=== PATIENT | female | born 1995 | race Caucasian/White ===

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

== ENCOUNTER 2017-05-23 18:30 | Emergency (ER) | END 2017-05-24 01:09 | disposition home or self-care (01) ==

== ENCOUNTER 2017-07-11 12:03 | Emergency (ER) | END 2017-07-11 15:02 | disposition home or self-care (01) ==

== ENCOUNTER 2017-12-18 12:30 | Inpatient (IN) | END 2017-12-21 16:05 | disposition home or self-care (01) | DRG 781 ==

== ENCOUNTER 2018-01-05 03:08 | Inpatient (IN) | END 2018-01-07 14:15 | disposition home or self-care (01) | DRG 806 ==

== ENCOUNTER 2018-02-22 09:11 | Emergency (ER) | payer OTHER ==
[~2018-02-22] VITALS: Wt 50.5 kg
[~2018-02-22 09:11] MED LIST: PREN1TAB91 PO
[2018-02-22] MEDS ORDERED: ACETAMINOPHEN 500 MG TAB PO STA (09:26)
[2018-02-22] MEDS ORDERED: ONDANSETRON 4 MG INJ IV STA (09:26)
[2018-02-22] MEDS ORDERED: SOD CHLORIDE 0.9% 1,000 ML IV ONE (09:30)
[2018-02-22] MEDS ORDERED: CEFTRIAXONE 1 GM/50 ML (PMX) 50 ML IVPB ONE (10:30)
[2018-02-22] MEDS ORDERED: SOD CHLORIDE 0.9% 1,000 ML IV STA (10:35)
--- NOTE | 2018-02-22 11:21 | ERD ---
ER Documentation Chief Complaint Chief Complaint FEVER WITH BILATERAL EAR PAIN SINCE FRIDAY HPI 22-year-old female history of vaginal delivery 1 month prior to being seen presents with fever and bilateral ear pain since Friday. Patient denies cough, shortness of breath, chest pain. Sore throat. She admits to having right lower abdominal pain since today rates it 5 out of 10. Patient states that she has decreased appetite, last meal was yesterday. Denies vomiting, diarrhea, constipation. Denies any history of abdominal surgeries. Denies dysuria, hematuria, flank tenderness ROS All systems reviewed and are negative except as per history of present illness. Medications Home Meds Active Scripts Acetaminophen* (Tylenol*) 325 Mg Tablet, 2 TAB PO Q6 PRN for PAIN AND OR ELEVATED TEMP, #30 TAB Prov:NIKOLAS RICHARD PA-C 02/22/18 Cefdinir (Cefdinir) 300 Mg Capsule, 300 MG PO BID, #20 CAP Prov:NIKOLAS RICHARD PA-C 02/22/18 Reported Medications Pnv95/Ferrous Fumarate/FA ( Formula Tablet) 1 Each Tablet, 1 EACH PO, TAB 12/18/17 Allergies Allergies: Coded Allergies: No Known Allergy (Unverified , 07/18/16) PMhx/Soc Medical and Surgical Hx: pt denies Surgical Hx History of Surgery: No Anesthesia Reaction: No Hx Neurological Disorder: No Hx Respiratory Disorders: No Hx Cardiac Disorders: No Hx Psychiatric Problems: No Hx Miscellaneous Medical Probl: Yes (fractured pelvis) Hx Alcohol Use: No Hx Substance Use: No Hx Tobacco Use: No Smoking Status: Never smoker Physical Exam Vitals Vital Signs Date Temp Pulse Resp B/P (MAP) Pulse Ox O2 O2 Flow FiO2 Time Delivery Rate 02/22/18 98.8 80 18 106/56 99 Room Air 12:46 (73) 02/22/18 101.8 102 18 97/55 (69) 96 Room Air 10:48 02/22/18 104.2 126 18 99/70 (80) 99 09:18 Physical Exam GENERAL: well-developed/well-nourished, in no apparent distress, non-toxic appearing HENT: NC/AT, moist mucous membranes EYES: Conjunctiva normal NECK: Supple, no lymphadenopathy PULM: CTA bilaterally, no rales, rhonchi, or wheezing heard CV: Normal S1S2, RRR, good capillary refill GI: Soft, non-distended, tender to palpation right pelvic region right lower quadrant, positive McBurney's point Normal bowel sounds, no masses or organomegaly felt on exam No gross peritonitis, no bruits Negative Rovsing, negative White Negative CVAT BACK: No masses EXT: No clubbing, cyanosis, or edema NEURO: Alert and Orientated SKIN: Intact, normal turgor PSYCH: Normal mood and mentation Result Diagram: 02/22/1849 02/22/18948 Results 24 hrs Laboratory Tests Test 02/22/18 09:40 02/22/18 09:49 02/22/18 09:52 Urine Color JAYLA Urine Clarity CLOUDY Urine pH 5.0 Urine Specific [place] 1.023 Urine Ketones 2+ mg/dL Urine Nitrite NEGATIVE mg/dL Urine Bilirubin NEGATIVE mg/dL Urine Urobilinogen NEGATIVE mg/dL Urine Leukocyte Esterase 3+ Ujliet/ul Urine Microscopic RBC 33 /HPF Urine Microscopic WBC > 182 /HPF Urine Squamous Epithelial Cells MANY /HPF Urine Bacteria FEW /HPF Urine Mucus MODERATE /HPF Urine Hemoglobin 2+ mg/dL Urine Glucose NEGATIVE mg/dL Urine Total Protein 2+ mg/dl White Blood Count 14.3 10^3/ul Red Blood Count 4.70 10^6/ul Hemoglobin 15.5 g/dl Hematocrit 43.6 % Mean Corpuscular Volume 92.8 fl Mean Corpuscular Hemoglobin 33.0 pg Mean Corpuscular 35.6 g/dl Hemoglobin Concent Red Cell Distribution Width 10.9 % Platelet Count 173 10^3/UL Mean Platelet Volume 11.5 fl Immature Granulocytes % 0.600 % Neutrophils % 92.0 % Lymphocytes % 4.4 % Monocytes % 2.9 % Eosinophils % 0.0 % Basophils % 0.1 % Nucleated Red Blood Cells % 0.0 /100WBC Immature Granulocytes # 0.080 10^3/ul Neutrophils # 13.2 10^3/ul Lymphocytes # 0.6 10^3/ul Monocytes # 0.4 10^3/ul Eosinophils # 0.0 10^3/ul Basophils # 0.0 10^3/ul Nucleated Red Blood Cells # 0.0 10^3/ul Sodium Level 139 mmol/L Potassium Level 3.8 mmol/L Chloride Level 100 mmol/L Carbon Dioxide Level 22 mmol/L Anion Gap 17 Blood Urea Nitrogen 7 mg/dl Creatinine 0.89 mg/dl Est Glomerular Filtrat > 60 mL/min Rate mL/min Glucose Level 126 mg/dl Calcium Level 9.5 mg/dl Total Bilirubin 0.5 mg/dl Direct Bilirubin 0.00 mg/dl Indirect Bilirubin 0.5 mg/dl Aspartate Amino 33 IU/L Transf (AST/SGOT) Alanine 18 IU/L Aminotransferase (ALT/SGPT) Alkaline Phosphatase 99 IU/L Total Protein 8.5 g/dl Albumin 4.6 g/dl Globulin 3.90 g/dl Albumin/Globulin Ratio 1.17 Monoscreen Negative POC Beta HCG, Qualitative NEGATIVE Current Medications Medications Dose Sig/Narda Start Time Status Last (Trade) Ordered Route PRN Stop Time Admin Dose Reason Admin 1,000 mg ONCE STAT 02/22/18 DC 02/22/18 Acetaminophen PO 09: 09:55 (Tylenol 02/22/18 Tab) 09:28 Ondansetron 4 mg ONCE STAT 02/22/18 DC 02/22/18 HCl (Zofran IV 09: 09:55 Inj) 02/22/18 09:30 Sodium 1,000 ml @ Q1H ONCE 02/22/18 DC 02/22/18 Chloride 1,000 mls/hr IV 09:30 09:56 02/22/18 10:29 Ceftriaxone 50 ml @ ONCE ONCE 02/22/18 DC 02/22/18 Sodium 100 mls/hr IVPB 10:30 10:31 02/22/18 10:59 Sodium 1,000 ml @ Q30M STAT 02/22/18 DC 02/22/18 Chloride 2,000 mls/hr IV 10:35 10:48 02/22/18 11:04 Procedures/MDM 22-year-old female presents with fever, bilateral ear pain and abdominal pain since Friday. Patient presented febrile with tachycardia however she does not appear toxic/septic. Patient likely has a viral syndrome with a urinary tract infection. There was no signs of otitis media, mastoiditis, pneumonia, meningitis. IV access established, patient was given 2 L of normal saline fluids. Lab work was obtained, she had mild leukocytosis of 14.3. CMP was unremarkable. Urinalysis showed positive signs of infection. Urine preg negative. Patient was treated empirically with Rocephin in the ED and she will be given a prescription for Cefdinir as outpatient. Chest x-ray did not show infiltrates with direct pleural effusion. Patient was tender in her right lower quadrant with positive McBurney's, a CT abdomen and pelvis without contrast was done and showed no significant abnormalities, although the radiologist stated the appendix was not clearly visualized I doubt appendicitis at this time. As I reassessed the patient, she was doing a lot better and had improvement in her symptoms. I have discussed with her that if she gets any worse or not improving as expected to return to the emergency department. I have discussed diagnostic testing with her. Patient's vitals and pain has stabilized in the ED and she stable to be discharged home with return precautions. She understands and agrees with this plan. CT ABD AND PELVIS WITHOUT CONTRAST FINDINGS: There is minimal discoid atelectasis in the right lower lobe. The lung bases are otherwise unremarkable. The liver, spleen, gallbladder, pancreas and adrenal glands are unremarkable for noncontrast study. The kidneys are bilaterally symmetrical without evidence of hydronephrosis. There is no evidence of obstructive uropathy. No significant retroperitoneal adenopathy is identified. The abdominal aorta is intact. The stomach is grossly unremarkable. There is no evidence of small bowel obstruction. The appendix is not clearly identified however there are no secondary signs of acute appendicitis. There is moderate stool seen throughout the colon. There is no evidence of diverticulitis.. No free fluid or free intraperitoneal air is identified. Evaluation of the osseous structures reveals no acute change. IMPRESSION: 1. No significant abnormalities are identified. The appendix is not clearly identified however there are no secondary signs of acute appendicitis. 2. There is moderate stool seen throughout the colon. 3. Otherwise, no significant abnormalities are identified. Departure Diagnosis: Primary Impression: Fever Additional Impression: UTI (urinary tract infection) Condition: Stable NIKOLAS RICHARD PA-C Feb 22, 2018 11:21
[2018-02-22] MEDS ORDERED: CEFD300C2 PO (11:28)
[2018-02-22] MEDS ORDERED: ACET325T33 PO (11:30)
[2018-02-22 12:46] VITALS: BP 106/56; PULSE 80; RESP 18
== END 2018-02-22 13:06 | disposition home or self-care (01) ==
LOC: FTE 09:11
DX: N39.0 Urinary tract infection, site not specified (principal); R10.2 Pelvic and perineal pain
CPT/HCPCS: 71045; 74176; 80053; 81001; 81025; 85025; 86308; 87400; J0696; J2405; J7030; Z7610; 96374; 96375

== ENCOUNTER 2018-04-27 09:13 | Emergency (ER) | payer OTHER ==
[~2018-04-27] VITALS: Ht 157.5 cm; Wt 50.2 kg
[~2018-04-27 09:13] MED LIST changes: +ACET325T33 PO; +CEFD300C2 PO
[2018-04-27 09:17] VITALS: BP 114/58; PULSE 68; RESP 20; Ht 157.5 cm; Wt 50.2 kg
[2018-04-27] MEDS ORDERED: KETOROLAC 60 MG INJ IM STA (09:42)
[2018-04-27] MEDS ORDERED: IBUP-1561 PO (11:28)
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
== END 2018-04-27 11:33 | disposition home or self-care (01) ==
LOC: FTE 09:13
DX: M25.551 Pain in right hip (principal); R10.2 Pelvic and perineal pain
CPT/HCPCS: 72170; 81025; 96372; J1885; Z7502

== ENCOUNTER 2018-07-03 18:38 | Emergency (ER) | payer OTHER ==
[~2018-07-03] VITALS: Ht 152.4 cm; Wt 46.1 kg
[~2018-07-03 18:38] MED LIST changes: +IBUP-1561 PO
[2018-07-03 18:42] VITALS: Ht 152.4 cm; Wt 46.1 kg
[2018-07-03] MEDS ORDERED: ONDANSETRON 4 MG INJ IV STA (21:07)
[2018-07-03] MEDS ORDERED: SOD CHLORIDE 0.9% 500 ML IV ONE (21:30)
[2018-07-03] MEDS ORDERED: ACET500C5 PO (22:24)
[2018-07-03] MEDS ORDERED: ONDA4TAB14 PO (22:24)
[2018-07-03 22:35] VITALS: BP 101/57; PULSE 91; RESP 17
--- NOTE | 2018-07-03 22:41 | ERD ---
ER Documentation Chief Complaint Chief Complaint c/o dizziness/body aches since yesterday HPI 22-year-old female patient with no significant past medical history presents the ED complaining of nausea as well as having dizziness 2-10 episodes of nonmucoid nonbloody diarrhea. She reports that she does have left upper quadrant abdomi nal pain. Denies any chest pain, shortness of breath, wheezing, fever, chills. Reports that she ate some of a car yesterday and it may have caused her to have the symptoms however she is unsure. Denies any other sick contacts. Denies any cough, rhinorrhea, dysuria. ROS All systems reviewed and are negative except as per history of present illness. Medications Home Meds Active Scripts Acetaminophen* (Tylophen*) 500 Mg Capsule, 1 CAP PO Q6H PRN for PAIN AND OR ELEVATED TEMP, #20 CAP Prov:SOCORRO TORRES PA-C 07/03/18 Ondansetron (Ondansetron Odt) 4 Mg Tab.rapdis, 4 MG PO Q6H PRN for NAUSEA AND/OR VOMITING, #10 TAB Prov:SOCORRO TORRES PA-C 07/03/18 Ibuprofen* (Motrin*) 400 Mg Tab, 400 MG PO Q6, #30 TAB Prov:SOCORRO TORRES PA-C 04/27/18 Acetaminophen* (Tylenol*) 325 Mg Tablet, 2 TAB PO Q6 PRN for PAIN AND OR ELEVATED TEMP, #30 TAB Prov:NIKOLAS RICHARD PA-C 02/22/18 Cefdinir (Cefdinir) 300 Mg Capsule, 300 MG PO BID, #20 CAP Prov:NIKOLAS RICHARD PA-C 02/22/18 Reported Medications Pnv95/Ferrous Fumarate/FA ( Formula Tablet) 1 Each Tablet, 1 EACH PO, TAB 12/18/17 Allergies Allergies: Coded Allergies: No Known Allergy (Unverified , 07/18/16) PMhx/Soc History of Surgery: No Anesthesia Reaction: No Hx Neurological Disorder: No Hx Respiratory Disorders: No Hx Cardiac Disorders: No Hx Psychiatric Problems: No Hx Miscellaneous Medical Probl: Yes (fractured pelvis) Hx Alcohol Use: No Hx Substance Use: No Hx Tobacco Use: No Smoking Status: Never smoker FmHx Family History: No diabetes, No coronary disease Physical Exam Vitals Vital Signs Date Temp Pulse Resp B/P (MAP) Pulse Ox O2 O2 Flow FiO2 Time Delivery Rate 07/03/18 99.9 119 18 140/74 98 18:42 (96) Physical Exam Const: Glj-[id number]-ycmwvmrwm, well-nourished. In no acute distress. Head: Atraumatic, normocephalic Eyes: Normal Conjunctiva without injection. No purulent discharge. ENT: Normal external ear, nose. Moist oropharynx without tonsillar exudates. Non-erythematous pharynx. Uvula midline. No drooling. No trismus. Neck: No cervical midline tenderness. Full range of motion. No meningismus. No cervical lymphadenopathy. No JVD. Resp: Clear to auscultation bilaterally. No wheezing, rhonchi, rales, or crackles. No accessory muscle use. No retractions. Cardio: Regular rate and rhythm. No murmurs, rubs or gallops. Abd: Soft, left upper quadrant tenderness, non distended. Normal bowel sounds. No palpable masses. No rebound tenderness. No guarding. Negative McBurney's point. Negative psoas sign. Negative obturator sign. Skin: No petechiae or rashes Back: No midline tenderness. No CVA tenderness. Ext: No cyanosis, or edema. Neur: Awake and alert. Normal gait. Normal coordination. Psych: Normal Mood and Affect Result Diagram: 07/03/18211507/03/182115 Results 24 hrs Laboratory Tests Test 07/03/18 21:16 07/03/18 21:22 White Blood Count 6.0 10^3/ul Red Blood Count 5.54 10^6/ul Hemoglobin 17.5 g/dl Hematocrit 50.9 % Mean Corpuscular Volume 91.9 fl Mean Corpuscular Hemoglobin 31.6 pg Mean Corpuscular Hemoglobin Concent 34.4 g/dl Red Cell Distribution Width 11.9 % Platelet Count 235 10^3/UL Mean Platelet Volume 11.4 fl Immature Granulocytes % 0.300 % Neutrophils % 81.2 % Lymphocytes % 11.7 % Monocytes % 6.5 % Eosinophils % 0.0 % Basophils % 0.3 % Nucleated Red Blood Cells % 0.0 /100WBC Immature Granulocytes # 0.020 10^3/ul Neutrophils # 4.8 10^3/ul Lymphocytes # 0.7 10^3/ul Monocytes # 0.4 10^3/ul Eosinophils # 0.0 10^3/ul Basophils # 0.0 10^3/ul Nucleated Red Blood Cells # 0.0 10^3/ul Urine Color YELLOW Urine Clarity SLIGHTLY CLOUDY Urine pH 5.0 Urine Specific [place] 1.032 Urine Ketones 2+ mg/dL Urine Nitrite NEGATIVE mg/dL Urine Bilirubin NEGATIVE mg/dL Urine Urobilinogen NEGATIVE mg/dL Urine Leukocyte Esterase NEGATIVE Juliet/ul Urine Microscopic RBC 2 /HPF Urine Microscopic WBC 5 /HPF Urine Squamous Epithelial Cells FEW /HPF Urine Mucus MANY /HPF Urine Hemoglobin 2+ mg/dL Urine Glucose NEGATIVE mg/dL Urine Total Protein 1+ mg/dl Sodium Level 140 mmol/L Potassium Level 3.9 mmol/L Chloride Level 102 mmol/L Carbon Dioxide Level 25 mmol/L Anion Gap 13 Blood Urea Nitrogen 11 mg/dl Creatinine 0.84 mg/dl Est Glomerular Filtrat Rate mL/min > 60 mL/min Glucose Level 114 mg/dl Calcium Level 9.9 mg/dl Total Bilirubin 0.6 mg/dl Direct Bilirubin 0.00 mg/dl Indirect Bilirubin 0.6 mg/dl Aspartate Amino Transf (AST/SGOT) 27 IU/L Alanine Aminotransferase (ALT/SGPT) 16 IU/L Alkaline Phosphatase 85 IU/L Total Protein 9.3 g/dl Albumin 5.0 g/dl Globulin 4.30 g/dl Albumin/Globulin Ratio 1.16 Lipase 76 U/L POC Beta HCG, Qualitative NEGATIVE Current Medications Medications Dose Sig/Narda Start Time Status Last (Trade) Ordered Route PRN Stop Time Admin Dose Reason Admin Sodium 500 ml @ Q1H ONCE 07/03/18 DC 07/03/18 Chloride 500 mls/hr IV 21:30 07/03/18 21:21 22:29 Ondansetron 4 mg ONCE STAT 07/03/18 DC 07/03/18 HCl (Zofran IV 21:07 07/03/18 21:21 Inj) 21:09 Procedures/MDM 22-year-old female patient with no sniffing past medical history presents to ED complaining of abdominal pain, diarrhea. Patient is afebrile and nontoxic- appearing. Patient is afebrile and nontoxic-appearing. Patient was further worked up with CBC, CMP, lipase, UA, urine . CBC: No leukocytosis. No e/o of systemic infection. No e/o anemia. CMP: No e/o severe acidosis, alkalosis, renal failure, diabetic ketoacidosis, liver disease Lipase within normal limits. Urine: No leukocyte esterase, no nitrites, 2+ hematuria. Urine : Negative Patient's diarrhea is likely due to viral etiology. Patient reports that she no longer had abdominal pain with the 4 mg IV Zofran, 500 mL normal saline treatment here in the ED. however instructed patient that if she still had persistent and worsening abdominal pain, she should return to the ED for any of these worsening symptoms for further evaluation and treatment. Low suspicion for ectopic , ovarian torsion, gastritis, GERD, peptic ulcer disease, cholecystitis, choledocholithiasis, cholangitis, pancreatitis, appendicitis, bowel obstruction, ileus, volvulus, nephrolithiasis, pyelonephritis, hepatitis, perforated viscus, diverticulitis, strangulated/incarcerated hernia, DKA, acute abdomen, mesenteric ischemia or other emergent conditions. Diagnosis: Diarrhea, Abdominal Pain Discharge medications: Tylenol, Zofran, Ibuprofen Follow up with primary care physician in 1-2 days. Instructed patient to return to the ED sooner for any worsening symptoms. Patient's questions were answered. Patient is hemodynamically stable. Patient understood and agreed with discharge plan. Patient discharged stable. Disclaimer: Inadvertent spelling and grammatical errors are likely due to EHR/dictation software use and do not reflect on the overall quality of patient care. Also, please note that the electronic time recorded on this note does not necessarily reflect the actual time of the patient encounter. Departure Diagnosis: Primary Impression: Diarrhea Diarrhea type: unspecified type Qualified Codes: R19.7 - Diarrhea, unspecified Additional Impression: Abdominal pain Abdominal location: unspecified location Qualified Codes: R10.9 - Unspecified abdominal pain Condition: Stable Patient Instructions: Abdominal Pain, Diet, Vomiting Or Diarrhea [6Yr-Adult] Referrals: [facility] YOU HAVE RECEIVED A MEDICAL SCREENING EXAM AND THE RESULTS INDICATE THAT YOU DO NOT HAVE A CONDITION THAT REQUIRES URGENT TREATMENT IN THE EMERGENCY DEPARTMENT. FURTHER EVALUATION AND TREATMENT OF YOUR CONDITION CAN WAIT UNTIL YOU ARE SEEN IN YOUR DOCTORS OFFICE WITHIN THE NEXT 1-2 DAYS. IT IS YOUR RESPONSIBILITY TO MAKE AN APPOINTMENT FOR FOLOW-UP CARE. IF YOU HAVE A PRIMARY DOCTOR --you should call your primary doctor and schedule an appointment IF YOU DO NOT HAVE A PRIMARY DOCTOR YOU CAN CALL OUR PHYSICIAN REFERRAL HOTLINE AT IF YOU CAN NOT AFFORD TO SEE A PHYSICIAN YOU CAN CHOSE FROM THE FOLLOWING [facility] [address] [facility] [address] [facility] [address] [facility] [address] [facility] [address] [facility] [facility] [address] [facility]. [facility] YOU HAVE RECEIVED A MEDICAL SCREENING EXAM AND THE RESULTS INDICATE THAT YOU DO NOT HAVE A CONDITION THAT REQUIRES URGENT TREATMENT IN THE EMERGENCY DEPARTMENT. FURTHER EVALUATION AND TREATMENT OF YOUR CONDITION CAN WAIT UNTIL YOU ARE SEEN IN YOUR DOCTORS OFFICE WITHIN THE NEXT 1-2 DAYS. IT IS YOUR RESPONSIBILITY TO MAKE AN APPOINTMENT FOR FOLOW-UP CARE. IF YOU HAVE A PRIMARY DOCTOR --you should call your primary doctor and schedule and appointment IF YOU DO NOT HAVE A PRIMARY DOCTOR YOU CAN CALL OUR PHYSICIAN REFERRAL HOTLINE AT . IF YOU CAN NOT AFFORD TO SEE A PHYSICIAN YOU CAN CHOSE FROM THE FOLLOWING [facility]: [facility] [address] [place] [address] [facility] [address] [place] [address] [facility] [address] [place] [address] [facility] Additional Instructions: Call your primary care doctor TOMORROW for an appointment during the next 2-3 days.See the doctor sooner or return here if your condition worsens before your appointment time. SOCORRO TORRES PA-C Jul 03, 2018 22:41
== END 2018-07-03 22:37 | disposition home or self-care (01) ==
LOC: FTE 18:38
DX: R19.7 Diarrhea, unspecified (principal)
CPT/HCPCS: 36415; 80053; 81001; 81025; 83690; 85025; 96361; 96374; J2405; J7040; Z7502

== ENCOUNTER 2018-09-17 09:30 | Emergency (ER) | payer OTHER ==
[~2018-09-17] VITALS: Ht 152.4 cm; Wt 47.7 kg
[~2018-09-17 09:30] MED LIST changes: +ACET500C5 PO; +ONDA4TAB14 PO
[2018-09-17 09:42] VITALS: BP 127/70; PULSE 83; RESP 18; Ht 152.4 cm; Wt 47.7 kg
[2018-09-17] MEDS ORDERED: FLUCONAZOLE 150 MG TAB PO ONE (13:00)
--- NOTE | 2018-09-17 16:08 | ERD ---
ER Documentation Chief Complaint Chief Complaint VAGINAL DRYNESS FOR 8 MONTHS HPI 22-year-old female with history of possible bacterial vaginosis for which she is taking unknown medication presents with complaint of vaginal dryness for the past 8 months. In addition states she is thick Kurdish like white discharge from the vagina. States that she has painful intercourse. Denies any dysuria, hematuria, fever, chills, abdominal pain, pelvic pain. ROS All systems reviewed and are negative except as per history of present illness. Medications Home Meds Active Scripts Acetaminophen* (Tylophen*) 500 Mg Capsule, 1 CAP PO Q6H PRN for PAIN AND OR ELEVATED TEMP, #20 CAP Prov:SOCORRO TORRES PA-C 07/03/18 Ondansetron (Ondansetron Odt) 4 Mg Tab.rapdis, 4 MG PO Q6H PRN for NAUSEA AND/OR VOMITING, #10 TAB Prov:SOCORRO TORRES PA-C 07/03/18 Ibuprofen* (Motrin*) 400 Mg Tab, 400 MG PO Q6, #30 TAB Prov:SOCORRO TORRES PA-C 04/27/18 Acetaminophen* (Tylenol*) 325 Mg Tablet, 2 TAB PO Q6 PRN for PAIN AND OR ELEVATED TEMP, #30 TAB Prov:NIKOLAS RICHARD PA-C 02/22/18 Cefdinir (Cefdinir) 300 Mg Capsule, 300 MG PO BID, #20 CAP Prov:NIKOLAS RICHARD PA-C 02/22/18 Reported Medications Pnv95/Ferrous Fumarate/FA ( Formula Tablet) 1 Each Tablet, 1 EACH PO, TAB 12/18/17 Allergies Allergies: Coded Allergies: No Known Allergy (Unverified , 07/18/16) PMhx/Soc Medical and Surgical Hx: pt denies Medical Hx, pt denies Surgical Hx History of Surgery: No Anesthesia Reaction: No Hx Neurological Disorder: No Hx Respiratory Disorders: No Hx Cardiac Disorders: No Hx Psychiatric Problems: No Hx Miscellaneous Medical Probl: Yes (fractured pelvis) Hx Alcohol Use: No Hx Substance Use: No Hx Tobacco Use: No FmHx Family History: No diabetes, No coronary disease, No other Physical Exam Vitals Vital Signs Date Temp Pulse Resp B/P (MAP) Pulse Ox O2 O2 Flow FiO2 Time Delivery Rate 09/17/18 98.1 83 18 127/70 98 09:42 (89) Physical Exam Const: No acute distress Head: Atraumatic Eyes: Normal Conjunctiva ENT: Normal External Ears, Nose and Mouth. Neck: Full range of motion. No meningismus. Resp: Clear to auscultation bilaterally Cardio: Regular rate and rhythm, no murmurs Abd: Soft, non tender, non distended. Normal bowel sounds Skin: No petechiae or rashes Back: No midline or flank tenderness Ext: No cyanosis, or edema Neur: Awake and alert Psych: Normal Mood and Affect Pelvic Exam: Weigher Bulker present Abdomen: Nontender External Genitalia: Normal Skin Speculum: Normal vaginal mucosa, thick white cottage cheeselike discharge noted in the vagina. Bimanual: No adnexal masses or tenderness, No CMT Results 24 hrs Laboratory Tests Test 09/17/18 10:57 09/17/18 11:01 09/17/18 11:02 POC Beta HCG, Qualitative NEGATIVE Bedside Glucose 86 mg/dL Urine Color YELLOW Urine Clarity CLEAR Urine pH 6.0 Urine Specific [place] 1.020 Urine Ketones NEGATIVE mg/dL Urine Nitrite NEGATIVE mg/dL Urine Bilirubin NEGATIVE mg/dL Urine Urobilinogen NEGATIVE mg/dL Urine Leukocyte Esterase NEGATIVE Juliet/ul Urine Hemoglobin NEGATIVE mg/dL Urine Glucose NEGATIVE mg/dL Urine Total Protein NEGATIVE mg/dl Current Medications Medications Dose Sig/Narda Start Time Status Last (Trade) Ordered Route PRN Stop Time Admin Dose Reason Admin Fluconazole 150 mg ONCE ONCE 09/17/18 DC 09/17/18 (Diflucan) PO 13:00 13:16 09/17/18 13:03 Procedures/MDM MDM: Patient was treated with Diflucan based on findings of thick cottage cheeselike discharge and pelvic exam. Patient advised that if this does not resolve the vaginal dryness then she should consider following up with an OB for further treatment. I have low suspicion for ectopic , ovarian torsion, PID, tubo-ovarian abscess, uterine prolapse, ovarian cancer, uterine cancer, nephrolithiasis, pyelonephritis, appendicitis, diverticulitis, bowel obstruction, perirectal abscess. At this time, patient is stable for discharge and outpatient management. I have instructed the patient to follow-up with his/her primary care physician in 1-2 days. I have discussed with the patient the possibility of needing to see a specialist for further workup and imaging studies if symptoms persist. I have instructed the patient to promptly return to the ER for any new or worsening symptoms including but not limited to increased pain, fever, nausea, vomiting, weakness or LOC. The patient and/or family expressed understanding of and agreement with this plan. All questions were answered. Home care instructions were provided. DISCLAIMER: Inadvertent spelling and grammatical errors are likely due to EHR/dictation software use and do not reflect on the overall quality of patient care. Also, please note that the electronic time recorded on this note does not necessarily reflect the actual time of the patient encounter. Departure Diagnosis: Primary Impression: Yeast infection Condition: Stable Patient Instructions: Preventing Vaginitis, Vaginitis, Bambi Referrals: [facility] YOU HAVE RECEIVED A MEDICAL SCREENING EXAM AND THE RESULTS INDICATE THAT YOU DO NOT HAVE A CONDITION THAT REQUIRES URGENT TREATMENT IN THE EMERGENCY DEPARTMENT. FURTHER EVALUATION AND TREATMENT OF YOUR CONDITION CAN WAIT UNTIL YOU ARE SEEN IN YOUR DOCTORS OFFICE WITHIN THE NEXT 1-2 DAYS. IT IS YOUR RESPONSIBILITY TO MAKE AN APPOINTMENT FOR FOLOW-UP CARE. IF YOU HAVE A PRIMARY DOCTOR --you should call your primary doctor and schedule an appointment IF YOU DO NOT HAVE A PRIMARY DOCTOR YOU CAN CALL OUR PHYSICIAN REFERRAL HOTLINE AT IF YOU CAN NOT AFFORD TO SEE A PHYSICIAN YOU CAN CHOSE FROM THE FOLLOWING [facility] [address] [facility]. [facility] [address] [facility]. [facility] [address] [facility] [facility] [address] [facility]. [facility] [address] [facility]. [facility]. [address] Additional Instructions: You were treated today for possible yeast infection. If your symptoms continue despite treatment please follow-up with your INTERVENTIONAL NURSE. Please return to ER if symptoms get worse. SHANTE GONSALEZ Sep 17, 2018 16:08
== END 2018-09-17 13:28 | disposition home or self-care (01) ==
LOC: FTE 09:30
DX: B37.3 Candidiasis of vulva and vagina (principal)
CPT/HCPCS: 81003; 81025; 82962; 87210; Z7502; Z7610; 99284

== ENCOUNTER 2018-10-10 14:05 | Emergency (ER) | payer SELFPAY ==
[~2018-10-10] VITALS: Wt 45.0 kg
[2018-10-10 14:08] VITALS: BP 129/83; PULSE 80; RESP 18
== END 2018-10-10 19:31 | disposition left against medical advice (07) ==
LOC: FTE 14:05
DX: Z53.21 Procedure and treatment not carried out due to patient leaving prior to being seen by health care provider (principal)